=== PATIENT | male | born 1960 ===

== ENCOUNTER 2022-11-21 03:56 | Day surgery (SDC) | payer BC, OTHER ==
[2022-11-17 11:19] VITALS: BMI 28.0
[2022-11-21] MEDS ORDERED: MIDAZOLAM HCL 2 MG/2 ML SINGLE DOSE VIAL ONE (11:35)
[2022-11-21] MEDS ORDERED: PROPOFOL 20 ML ONE (11:35)
[2022-11-21] MEDS ORDERED: ceFAZolin SODIUM 1 GM VIAL IVPB ONE (11:40)
[2022-11-21] MEDS ORDERED: ONDANSETRON 4 MG/2 ML VIAL ONE (11:41)
[2022-11-21] MEDS ORDERED: ceFAZolin SODIUM 1 GM VIAL ONE ×2 (11:41)
[2022-11-21] MEDS ORDERED: ELECTROLYTE-148 SOLN 1,000 ML IV SCH (11:45)
[2022-11-21 12:29] VITALS: RESP 18
[2022-11-21 13:25] VITALS: BP 111/79; PULSE 83; TEMP 98.3
== END 2022-11-21 14:15 | disposition home or self-care (01) ==
LOC: JASU-SURG 03:56
PROVIDERS: ATTEND Urology
PROC: 0TF4XZZ Fragmentation in Left Kidney Pelvis, External Approach (ICD-10-PCS; principal; 2022-11-21 11:30)
DX: N20.0 Calculus of kidney (principal)